=== PATIENT | male | born 1980 | race Caucasian/White ===

== ENCOUNTER 2017-10-09 12:44 | Emergency (ER) | payer BC, OTHER ==
[2017-10-09 12:54] VITALS: BP 116/82; PULSE 63; TEMP 98.5; BMI 32.8
--- NOTE | 2017-10-09 12:56 | PDOC ---
History of Present Illness - General Chief Complaint: Diarrhea Stated Complaint: DIARRHEA X 4 DAYS Time Seen by Provider: 10/09/17 12:51 Exam Limitations: No Limitations - History of Present Illness Travel History: No Initial Comments: 10/09/17 12:53 37 y/o male with diarrhea for 4 days, no vomiting. No fever or chills or traveling. No sick contacts. Went to [facility] and told to come here because he noted his stool to be dark. patient denies blood. No abdominal pain or back pain. Used Immodium and Pepto Bismol 2 days ago. No SOB or chest pain. Feels fine otherwise. Timing/Duration: reports: constant Quality: reports: mild Pain Radiation: reports: no radiation. denies: flank Activities at Onset: reports: none Past History - Travel Traveled outside of the country in the last 30 days: No - Past Medical History Allergies/Adverse Reactions: Allergies Allergy/AdvReac Type Severity Reaction Status Date / Time No Known Allergies Allergy Verified 10/09/17 12:47 Home Medications: Ambulatory Orders Bismuth Subsalicylate [Pepto-Bismol -] 524 mg PO ONCE 10/09/17 Review of Systems - Review of Systems Able to Perform ROS?: Yes Is the patient limited Italian proficient: No Constitutional: No: Chills, Fever, Weakness Respiratory: No: Cough, Shortness of Breath Cardiac (ROS): No: Chest Pain ABD/GI: Yes: Diarrhea. No: Blood Streaked Bowels, Nausea, Vomiting : No: Burning, Dysuria Musculoskeletal: No: Back Pain Neurological: No: Headache, Numbness, Paresthesia All Other Systems: Reviewed and Negative *Physical Exam - Physical Exam General Appearance: Yes: Nourished, Appropriately Dressed. No: Apparent Distress HEENT: positive: EOMI, ERAN, Normal ENT Inspection Neck: positive: Trachea midline, Normal Thyroid, Supple. negative: Tender, Rigid Respiratory/Chest: positive: Lungs Clear, Normal Breath Sounds. negative: Chest Tender, Respiratory Distress Cardiovascular: positive: Regular Rhythm, Regular Rate, S1, S2. negative: Edema , JVD, Murmur Vascular Pulses: Femoral (R): 4+, Femoral (L): 4+, Carotid (R): 4+, Carotid (L) : 4+, Dorsalis-Pedis (R): 4+, Doralis-Pedis (L): 4+ Gastrointestinal/Abdominal: positive: Normal Bowel Sounds, Flat, Soft. negative : Tender, Organomegaly, Pulsatile Mass Rectal Exam: positive: heme negative stool, normal exam, NL Prostate, normal rectal tone. negative: melena, hemorrhoids Lymphatic: negative: Adenopathy, Tenderness, Other Musculoskeletal: positive: Normal Inspection. negative: CVA Tenderness Extremity: positive: Normal Capillary Refill, Normal Inspection, Normal Range of Motion. negative: Tender, Pelvis Stable Integumentary: positive: Normal Color, Dry, Warm Neurologic: positive: electronics mechanic apprentice II-XII NML intact, Fully Oriented, Alert, Normal Mood/ Affect, Normal Response, Motor Strength / ED Treatment Course - LABORATORY CBC & Chemistry Diagram: 10/09/17 13:00 10/09/17 13:00 Progress Note - Progress Note Progress Note: Pt is feeling better. Labs noted and vital stable. Guaic negative, dark stool related to Pepto Bismol If worsen pt will return to ER for CT abdomen/pelvis Patient is in agreement with plan. *DC/Admit/Observation/Transfer Diagnosis at time of Disposition: Elevated liver function tests Diarrhea Qualifiers: Diarrhea type: unspecified type Qualified Code(s): R19.7 - Diarrhea, unspecified - Discharge Dispostion Disposition: HOME Condition at time of disposition: Good Admit: No - Referrals - Patient Instructions Printed Discharge Instructions: Diarrhea Additional Instructions: Fluids, rest, Motrin Imodium for diarrhea Repeat LFT in 1 week with PMD If worsen return to ER fro CT abdomen/pelvis - Post Discharge Activity
[2017-10-09 13:13] LABS: BASOPHIL 0.6 % (0-2.0); EOSINOPHIL 3.1 % (0-4.5); MCH 30.8 pg (25.7-33.7); MCHC 34.1 g/dl (32.0-35.9); MEAN CELL VOLUME 90.4 fl (80-96); MEAN PLT VOLUME 9.3 fl (7.5-11.1); NEUTROPHILS 60.8 % (42.8-82.8); PLATELET COUNT 227 K/MM3 (134-434); RDW 12.4 % (11.9-15.9); WHITE BLOOD COUNT 5.8 K/mm3 (4.0-10.8)
[2017-10-09 13:32] LABS: ALBUMIN 4.1 g/dl (3.5-5.0); ALK PHOS 47 U/L (32-92); ANION GAP 4 (8-16); BILIRUBIN,TOTAL 1.9 mg/dl (0.2-1.0); CALCIUM 9.3 mg/dl (8.4-10.2); CO2 26 mmol/L (22-28); GLUCOSE,RANDOM 85 mg/dl (74-106); SGOT/AST 28 U/L (10-42); SGPT/ALT 45 U/L (10-40); TOT PROT 6.9 g/dl (6.4-8.3)
== END 2017-10-09 14:05 | disposition home or self-care (01) ==
LOC: FER 12:44
DX: R94.5 Abnormal results of liver function studies (principal); R19.7 Diarrhea, unspecified
CPT/HCPCS: 36415; 80053; 82272; 83690; 85025; 99281-25

== ENCOUNTER 2024-04-18 13:24 | Emergency (ER) | payer BC, OTHER ==
[2024-04-18] MEDS ORDERED: ACETAMINOPHEN INJECTION 100 ML IVPB ONE (13:47)
[2024-04-18] MEDS: LACTATED RINGERS SOLUTION 1000 ML INFUS.BAG IV ONE (14:04)
[2024-04-18] MEDS: ACETAMINOPHEN 1000 MG/100 ML BAG IVPB ONE (14:04)
[2024-04-18 14:12] LABS: HEMATOCRIT 46.2 % (35.4-49); HEMOGLOBIN 15.3 G/dL (11.7-16.9); MCH 30.9 pg (25.7-33.7); MCHC 33.2 g/dl (32.0-35.9); MEAN CELL VOLUME 93.2 fl (80-96); MEAN PLT VOLUME 8.1 fl (7.5-11.1); PLATELET COUNT 296.1 10^3/uL (134-434); RBC 4.96 10^6/uL (4.00-5.60); RDW 13.6 % (11.9-15.9); WHITE BLOOD COUNT 6.7 10^3/uL (4.0-10.8)
[2024-04-18 14:13] LABS: INR 0.97 (0.83-1.09); PROTHROMBIN TIME (PATIENT) 11.1 SEC (9.7-13.0)
[2024-04-18 14:15] LABS: ACTIVATED PTT 34.8 SECONDS (25.2-36.5)
[2024-04-18 14:18] LABS: PLATELET ESTIMATE ADEQUATE
[2024-04-18 14:21] VITALS: BP 145/91; PULSE 109; RESP 18; TEMP 98.9; BMI 27.3
[2024-04-18 14:32] LABS: ALBUMIN 4.8 g/dl (3.4-5.0); BILIRUBIN,TOTAL 1.7 mg/dl (0.2-1); CALCIUM 9.8 mg/dl (8.5-10.1); CREATININE 1.2 mg/dl (0.6-1.3); POTASSIUM 4.4 mmol/L (3.5-5.1); TOT PROT 7.6 g/dl (6.4-8.2)
== END 2024-04-18 16:32 | disposition home or self-care (01) ==
LOC: FER 13:24
PROC: 3E033NZ Introduction of Analgesics, Hypnotics, Sedatives into Peripheral Vein, Percutaneous Approach (ICD-10-PCS; principal; 2024-04-18)
DX: R10.31 Right lower quadrant pain (principal); R19.7 Diarrhea, unspecified
CPT/HCPCS: 36415; 71045-TC-FY; 74177-TC; 80053; 83690; 85027; 85610; 85730; 99285-25; J0131; Q9967